=== PATIENT | female | born 1960 | race Caucasian/White ===

== ENCOUNTER → 2017-02-22 | Outpatient (CLI) | payer OTHER ==
--- NOTE | 2017-02-22 09:55 | DI ---
Clinical History: Annual Screening Previous Exam: None at this facility. Findings: CC and MLO views of both breasts are obtained, and demonstrate heterogeneously dense fibroglandular e lements. Computer aided diagnostics were applied. There is asymmetric density within the left breast without definite mass. Multiple characteristically benign calcifications are noted. Impression: Asymmetric density within the left breast worrisome for underlying mass. Recommend diagnostic sonography with breast tomosynthesis for further evaluation. This may be avoided if prior comparisons become available for review. BI-RADS 0: Incomplete. Need additional imaging evaluation.
== END ==
LOC: MAMMO 09:10
PROVIDERS: ATTEND Nurse Practitioner Family
DX: Z12.31 Encounter for screening mammogram for malignant neoplasm of breast (principal)
CPT/HCPCS: G0202

== ENCOUNTER → 2017-03-07 | Outpatient (CLI) | payer OTHER ==
--- NOTE | 2017-03-07 18:44 | DI ---
LEFT FOOT, 03/07/2017 1:21 PM: Clinical History: Bilateral toe pain. Previous Exam: 12/25/2012. These films are from the [facility] of [place], [place]. 3 weightbearing views are submitted. There is no acute soft tissue, osseous, or joint abnormality. [place] int space narrowing is present in the PIP and DIP joints and DIP joint of the great toe. This pattern is unchanged from the prior exam. Reading: There are arthritic changes of the joint spaces of all the toes, unchanged from the previous exam.
--- NOTE | 2017-03-07 18:45 | DI ---
RIGHT FOOT, 03/07/2017 1:20 PM: Clinical History: Bilateral toe pain. Previous Exam: None at this facility. 3 weightbearing views are submitted. There is no acute soft tissue, osseous, or joint abnormality. Th ere is joint space narrowing of the IP joint of the great toe and the PIP and DIP joints of the remai sherlyn toes. Reading: Arthritic changes are present in the joint spaces of all of the toes.
== END ==
LOC: MOB RAD 13:22
PROVIDERS: ATTEND Podiatrist Foot & Ankle Surgery
DX: M79.675 Pain in left toe(s) (principal); M79.674 Pain in right toe(s); M19.072 Primary osteoarthritis, left ankle and foot; M19.071 Primary osteoarthritis, right ankle and foot
CPT/HCPCS: 73630

== ENCOUNTER 2017-03-20 08:34 | Day surgery (SDC) | payer OTHER ==
[~2017-03-20 08:34] MED LIST: LIDOCAINE W/ SODIUM BICARB 0.5 ML SYR ONE; Lactated Ringers 1,000 ML PRIMARY IV ONE
[2017-03-20] MEDS ORDERED: fentaNYL Inj 100 MCG/2 ML VIAL ONE (08:43)
[2017-03-20] MEDS ORDERED: MIDAZOLAM 5 MG/1 ML ONE (08:43)
[2017-03-20 09:21] VITALS: RESP 14
--- NOTE | 2017-03-20 09:47 | GEN.OPNOTE ---
Colonoscopy Procedure Note Surgery Date: 03/20/17 Preoperative Diagnosis: Colon cancer screening Postoperative Diagnosis: Sigmoid diverticulosis. Colon cancer screening Procedure: Colonoscopy Surgeon: Prashanth Lopez MD Anesthesia Provider: Easton Herndon CRNA Anesthesia Type: MAC Indications: Colon cancer surveillance Findings: Prep : Excellent Cecum : Olympus video colonoscopy scope inserted all way to cecum. Ileocecal valve clearly identified. Appendiceal orifice seen. Patient normal appearance cecum Ascending : Ascending colon was free from disease Transverse : Transverse colon had no abnormal pathology noted Sigmoid : Descending colon was normal. Sigmoid colon had diverticulosis Rectum : Rectum free from disease Digital Rectal Exam :] A lubricated flexible colonoscope was inserted and passed to the blind end of the cecum. Additional Details: Routine colonoscopy in 10 years
[2017-03-20 10:29] VITALS: TEMP 98
== END 2017-03-20 10:15 | disposition home or self-care (01) ==
LOC: SDSC 08:34
PROVIDERS: ATTEND Surgery
DX: Z12.11 Encounter for screening for malignant neoplasm of colon (principal); K57.90 Diverticulosis of intestine, part unspecified, without perforation or abscess without bleeding
CPT/HCPCS: 45378; J2250; J2704; J3010; J7120